=== PATIENT | female | born 2000 | race Two or more races ===

== ENCOUNTER → 2020-10-08 | Outpatient (REF) | payer OTHER ==
[2020-10-17 15:32] LABS: CHLAMYDIA DNA AMPLIFICATION NEGATIVE (NEGATIVE); GC DNA AMPLIFICATION NEGATIVE (NEGATIVE)
== END ==
LOC: M SFHCLERA 15:32
PROVIDERS: ATTEND Student in an Organized Health Care Education/Training Program
DX: Z12.4 Encounter for screening for malignant neoplasm of cervix (principal); N76.0 Acute vaginitis
CPT/HCPCS: 87070; 87077; 87491; 87591; 90834; G0123; G0463

== ENCOUNTER → 2021-06-12 | Outpatient (REF) | payer OTHER | LOC: M SFHCLERA 16:51 | PROVIDERS: ATTEND Nurse Practitioner Family | DX: R82.90 Unspecified abnormal findings in urine (principal) ==